=== PATIENT | female | born 1995 | race Caucasian/White ===

== ENCOUNTER 2019-04-07 16:44 | Observation (INO) | payer OTHER, BC ==
[2019-04-07] MEDS ORDERED: NA CHLORIDE 0.9% 2,000 ML ONE (18:23)
[2019-04-07 18:30] LABS: Absolute Lymphocytes (CBC) 1.7 K/uL (0.7-4.9); Basophils % 0.3 % (0-1.3); Hematocrit 25.4 % (36.0-45.0); Lymphocytes % 19.8 % (15.3-44.8); MPV 10.8 fL (7.6-11.3); RBC Red Blood Cell Count 2.96 M/uL (3.86-4.86)
[2019-04-07 18:49] LABS: BUN Blood Urea Nitrogen 7 mg/dL (7-18); Bicarbonate 25 mmol/L (21-32); Glucose Level 93 mg/dL (74-106); HCG, Quantitative 136 mIU/mL (1-3); Potassium 3.6 mmol/L (3.5-5.1); Sodium Level 140 mmol/L (136-145)
[2019-04-07] MEDS ORDERED: METHYLERGONOVINE 0.2MG/ML AMP IM ONE (19:12)
--- NOTE | 2019-04-07 19:42 | ER ---
Nurse's Notes [facility] Name: Karen Lloyd Age: 23 yrs Sex: Female : 1995 Arrival Date: 04/07/2019 Time: 16:48 Bed 30 Private MD: Diagnosis: Spontaneous ;Pelvic and perineal pain;Anemia, unspecified Presentation: 04/07 16:58 Presenting complaint: Patient states: "I had a miscarriage on Sunday, I have been aj1 bleeding since Sunday. I saw Dr. Horner this morning, he removed a lot of the placenta, he checked my blood and my hemoglobin was really low. He called and told me to come to the ER" Reports that her hemoglobin was at a 9 today. Transition of care: patient was not received from another setting of care. Onset of symptoms was April 07, 2019. Risk Assessment: Do you want to hurt yourself or someone else? Patient reports no desire to harm self or others. Initial Sepsis Screen: Does the patient meet any 2 criteria? HR > 90 bpm. No. Patient's initial sepsis screen is negative. Does the patient have a suspected source of infection? No. Patient's initial sepsis screen is negative. Care prior to arrival: None. 16:58 Method Of Arrival: Ambulatory aj1 16:58 Acuity: INMA 3 aj1 Triage Assessment: 17:01 General: Appears in no apparent distress. uncomfortable, Behavior is calm, cooperative, aj1 appropriate for age. Pain: Pain currently is 9 out of 10 on a pain scale. Neuro: Level of Consciousness is awake, alert, obeys commands. Cardiovascular: Patient's skin is warm and dry. 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 - Social history:: Smoking status: Patient/guardian denies using tobacco. - Ebola Screening: : Patient denies travel to an Ebola-affected area in the 21 days before illness onset. - Family history:: not pertinent. Screenin:30 Abuse screen: Denies threats or abuse. Nutritional screening: No deficits noted. tr5 Tuberculosis screening: No symptoms or risk factors identified. Fall Risk None identified. Assessment: 17:30 General: Appears in no apparent distress. Behavior is calm, cooperative. Pain: Denies tr5 pain. Neuro: Level of Consciousness is awake, alert, obeys commands, Oriented to person, place, time, Clerk are equal bilaterally. Cardiovascular: Heart tones present Capillary refill < 3 seconds. Respiratory: Airway is patent Respiratory effort is even, unlabored, Respiratory pattern is regular, symmetrical. GI: No signs and/or symptoms were reported involving the gastrointestinal system. : Reports vaginal bleeding that is bright red. EENT: No signs and/or symptoms were reported regarding the EENT system. Derm: No signs and/or symptoms reported regarding the dermatologic system. Musculoskeletal: No signs and/or symptoms reported regarding the musculoskeletal system. 19:30 General: Appears in no apparent distress. uncomfortable, Behavior is calm, cooperative, aj1 appropriate for age. Pain: Complains of pain in left lower quadrant and right lower quadrant and suprapubic area Pain does not radiate. Pain currently is 8 out of 10 on a pain scale. Neuro: Level of Consciousness is awake, alert, obeys commands, Oriented to person, place, time, situation. Cardiovascular: Patient's skin is warm and dry. Respiratory: Airway is patent Respiratory effort is even, unlabored, Respiratory pattern is regular, symmetrical. GI: Abdomen is non-distended. : Reports vaginal bleeding that is bright red, with clots. EENT: No signs and/or symptoms were reported regarding the EENT system. Derm: Skin is pale. Musculoskeletal: No signs and/or symptoms reported regarding the musculoskeletal system. Circulation, motion, and sensation intact. 20:30 Reassessment: Patient appears in no apparent distress at this time. Patient and/or aj1 family updated on plan of care and expected duration. Pain level reassessed. Patient is alert, oriented x 3, equal unlabored respirations, skin warm/dry/pink. Patient states that she still has some pain but it has reduced to a tolerable level since administration of morphine. 21:15 Reassessment: Patient appears in no apparent distress at this time. No changes from aj1 previously documented assessment. Patient and/or family updated on plan of care and expected duration. Pain level reassessed. Patient is alert, oriented x 3, equal unlabored respirations, skin warm/dry/pink. Vital Signs: 17:01 BP 118 / 76; Pulse 101; Resp 20; Temp 99.7; Pulse Ox 100% on R/A; Weight 52.16 kg (R); aj1 Height 5 ft. 2 in. (157.48 cm) (R); Pain 9/10; 18:22 BP 108 / 66; Pulse 96; Resp 16; Pulse Ox 100% on R/A; 5 20:02 BP 117 / 69; Pulse 86; Resp 18; Pulse Ox 100% on R/A; aj1 21:05 BP 121 / 73; Pulse 86; Resp 18; Pulse Ox 100% on R/A; aj1 17:01 Body Mass Index 21.03 (52.16 kg, 157.48 cm) [facility] ED Course: 16:48 Patient arrived in ED. mr 17:01 Triage completed. aj1 17:01 Arm band placed on Patient placed in an exam room. aj1 17:06 Will Jose, ANDREI is Primary Nurse. tr5 17:12 Robert Christopher MD is Attending Physician. [facility] 17:30 Bed in low position. Call light in reach. Side rails up X 1. tr5 18:21 Initial lab(s) drawn, by nc, sent to lab. T\\T\\S collected, blood band applied to patient. 5 Inserted saline lock: 22 gauge in right antecubital area, using aseptic technique. 18:22 Quantitative Hcg Sent. 5 18:22 Type And Screen Sent. 5 18:22 Basic Metabolic Panel Sent. 5 18:22 CBC with Diff Sent. 5 18:53 Transvaginal Ob: recent miscarriage In Process Unspecified. EDWV 19:15 Report received from ANDREI Solis. aj1 19:40 Jimmy Horner MD is Hospitalizing Provider. [facility] 20:02 No provider procedures requiring assistance completed. aj1 21:15 Report given to ANDREI [place] [facility]. aj1 21:33 Patient admitted, IV remains in place. aj1 Administered Medications: 18:51 Drug: NS 0.9% 1000 ml Route: IV; Rate: 1 bolus; Site: right antecubital; tr5 19:15 Drug: METHERgine 0.2 mg Route: IM; Site: left deltoid; tr5 20:00 Follow up: Response: No adverse reaction aj 19:28 Not Given (Duplicate Order): NS 0.9% 1000 ml IV at 125 ml/hr continuous juan 19:28 CANCELLED (Duplicate Order): Pitocin 20 units IV at calculated rate once; please add to juan LR AT 125 CC/HR 20:00 Drug: Rocephin 1 grams Route: IV; Rate: per protocol; Site: right antecubital; aj1 20:02 Follow up: IV Status: Completed infusion; IV Intake: 10ml aj 20:01 Drug: morphine 2 mg Route: IVP; Site: right antecubital; aj1 20:30 Follow up: Response: No adverse reaction; Pain is decreased; RASS: Alert and Calm (0) aj 20: Drug: Zofran 4 mg Route: IVP; Site: right antecubital; aj1 20:30 Follow up: Response: No adverse reaction aj 20: Drug: Lactated Ringers Solution 1000 ml Route: IV; Rate: 150 ml/hr; Site: right aj1 antecubital; 21:36 Follow up: IV Status: Infusion continued upon admission; IV Intake: 165ml aj1 20:01 Drug: Pitocin 20 units Route: IV; Rate: calculated rate; Site: right antecubital; aj1 21:36 Follow up: IV Status: Infusion continued upon admission aj1 Intake: 20:02 IV: 10ml; Total: 10ml. aj1 21:36 IV: 165ml; Total: 175ml. aj1 Outcome: 19:42 Decision to Hospitalize by Provider. [facility] 21:34 Admitted to L \\T\\ D, accompanied by tech, via wheelchair, with chart. aj1 21:34 Condition: good 21:34 Discharge instructions given to patient, family, Instructed on the need for admit, Demonstrated understanding of instructions. 21:37 Patient left the ED. aj1 Signatures: Dispatcher [employer] Margy Shen RN RN aj1 Robert Christopher MD MD cha Rivera, Sonal Egan, [place] Will Harvey RN RN tr5 Corrections: (The following items were deleted from the chart) 18:50 18:22 ABO/RH TYPING+BB.LAB.BRZ drawn and sent. mh5 EDMS
--- NOTE | 2019-04-07 19:43 | EDPHYS ---
Physician Documentation [facility] Name: Karen Lloyd Age: 23 yrs Sex: Female : 1995 Arrival Date: 04/07/2019 Time: 16:48 Bed 30 Private MD: ED Physician Robert Christopher HPI: 04/07 17:53 This 23 yrs old Female presents to ER via Ambulatory with complaints of juan Abnormal Lab Results. 17:53 The patient presents with pelvic pain, that is located in/on the suprapubic area, right juan lower quadrant and left lower quadrant, vaginal bleeding that is light, moderate. Onset: The symptoms/episode began/occurred 3 day(s) ago. Modifying factors: The symptoms are alleviated by nothing, the symptoms are aggravated by nothing. Associated signs and symptoms: The patient has no apparent associated signs or symptoms. Severity of symptoms: At their worst the symptoms were moderate, in the emergency department the symptoms have resolved. The patient is sexually active, reportedly has a single partner. 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 - Social history:: Smoking status: Patient/guardian denies using tobacco. - Ebola Screening: : Patient denies travel to an Ebola-affected area in the 21 days before illness onset. - Family history:: not pertinent. ROS: 17:53 Constitutional: Negative for fever, chills, and weight loss, Eyes: Negative for injury, juan pain, redness, and discharge, ENT: Negative for injury, pain, and discharge, Neck: Negative for injury, pain, and swelling, Respiratory: Negative for shortness of breath, cough, wheezing, and pleuritic chest pain, Abdomen/GI: Negative for abdominal pain, nausea, vomiting, diarrhea, and constipation, Back: Negative for injury and pain, : Negative for injury, bleeding, discharge, and swelling, Skin: Negative for injury, rash, and discoloration, Neuro: Negative for headache, weakness, numbness, tingling, and seizure. 17:53 Cardiovascular: Positive for palpitations. 17:53 Abdomen/GI: Positive for abdominal pain, of the suprapubic area, right lower quadrant and left lower quadrant. 17:53 MS/extremity: Positive for Exam: 17:53 Constitutional: This is a well developed, well nourished patient who is awake, alert, juan and in no acute distress. Head/Face: Normocephalic, atraumatic. ENT: Nares patent. No nasal discharge, no septal abnormalities noted. Tympanic membranes are normal and external auditory canals are clear. Oropharynx with no redness, swelling, or masses, exudates, or evidence of obstruction, uvula midline. Mucous membranes moist. Neck: Trachea midline, no thyromegaly or masses palpated, and no cervical lymphadenopathy. Supple, full range of motion without nuchal rigidity, or vertebral point tenderness. No Meningismus. Chest/axilla: Normal chest wall appearance and motion. Nontender with no deformity. No lesions are appreciated. Cardiovascular: Regular rate and rhythm with a normal S1 and S2. No gallops, murmurs, or rubs. Normal PMI, no JVD. No pulse deficits. Respiratory: Lungs have equal breath sounds bilaterally, clear to auscultation and percussion. No rales, rhonchi or wheezes noted. No increased work of breathing, no retractions or nasal flaring. Back: No spinal tenderness. No costovertebral tenderness. Full range of motion. MS/ Extremity: Pulses equal, no cyanosis. Neurovascular intact. Full, normal range of motion. Neuro: Awake and alert, GCS 15, oriented to person, place, time, and situation. Cranial nerves II-XII grossly intact. Motor strength 5/5 in all extremities. Sensory grossly intact. Cerebellar exam normal. Normal gait. Psych: Awake, alert, with orientation to person, place and time. Behavior, mood, and affect are within normal limits. 17:53 Eyes: Conjunctiva: pale. 17:53 Cardiovascular: Rate: tachycardic, Rhythm: regular, Pulses: Pulses are 4+ in bilateral radial, brachial, femoral, popliteal, posterior tibial and and dorsalis pedis arteries.. Heart sounds: normal, Edema: is not appreciated, JVD: is not appreciated. 17:53 Skin: Appearance: Color: pale, Temperature: normal temperature, warm, Moisture: normal moisture, petechiae, not noted, ecchymosis, not noted, flushing, not noted, diaphoresis is not appreciated. Vital Signs: 17:01 BP 118 / 76; Pulse 101; Resp 20; Temp 99.7; Pulse Ox 100% on R/A; Weight 52.16 kg (R); aj1 Height 5 ft. 2 in. (157.48 cm) (R); Pain 9/10; 18:22 BP 108 / 66; Pulse 96; Resp 16; Pulse Ox 100% on R/A; mh5 20:02 BP 117 / 69; Pulse 86; Resp 18; Pulse Ox 100% on R/A; aj1 21:05 BP 121 / 73; Pulse 86; Resp 18; Pulse Ox 100% on R/A; aj1 17:01 Body Mass Index 21.03 (52.16 kg, 157.48 cm) [facility] MDM: 17:13 Patient medically screened. [facility] 17:56 Data reviewed: vital signs, nurses notes, lab test result(s), radiologic studies, juan ultrasound. 04/07 17:52 Order name: Quantitative Hcg; Complete Time: 18:52 [facility] 04/07 17:52 Order name: Basic Metabolic Panel; Complete Time: 18:52 [facility] 04/07 17:52 Order name: CBC with Diff; Complete Time: 18:52 [facility] 04/07 17:52 Order name: Type And Screen; Complete Time: 19:17 [facility] 04/07 17:53 Order name: US Transvaginal Ob: recent miscarriage [facility] 04/07 17:52 Order name: Urine Test (obtain specimen); Complete Time: 18:19 [facility] 04/07 17:52 Order name: IV Saline Lock; Complete Time: 18:19 [facility] 04/07 17:52 Order name: Labs collected and sent; Complete Time: 18:19 [facility] 04/07 17:52 Order name: NPO; Complete Time: 18:19 [facility] 04/07 17:52 Order name: Urine Dipstick-Ancillary (obtain specimen); Complete Time: 19:21 [facility] 04/07 17:57 Order name: EKG; Complete Time: 17:58 [facility] 04/07 17:57 Order name: EKG - Nurse/Tech; Complete Time: 19:06 [facility] Administered Medications: 18:51 Drug: NS 0.9% 1000 ml Route: IV; Rate: 1 bolus; Site: right antecubital; tr5 19:15 Drug: METHERgine 0.2 mg Route: IM; Site: left deltoid; tr5 20:00 Follow up: Response: No adverse reaction 19:28 Not Given (Duplicate Order): NS 0.9% 1000 ml IV at 125 ml/hr continuous juan 19:28 CANCELLED (Duplicate Order): Pitocin 20 units IV at calculated rate once; please add to juan LR AT 125 CC/HR 20:00 Drug: Rocephin 1 grams Route: IV; Rate: per protocol; Site: right antecubital; aj1 20:02 Follow up: IV Status: Completed infusion; IV Intake: 10ml aj 20: Drug: morphine 2 mg Route: IVP; Site: right antecubital; aj1 20:30 Follow up: Response: No adverse reaction; Pain is decreased; RASS: Alert and Calm (0) aj 20: Drug: Zofran 4 mg Route: IVP; Site: right antecubital; aj1 20:30 Follow up: Response: No adverse reaction aj 20: Drug: Lactated Ringers Solution 1000 ml Route: IV; Rate: 150 ml/hr; Site: right aj1 antecubital; 21:36 Follow up: IV Status: Infusion continued upon admission; IV Intake: 165ml aj 20: Drug: Pitocin 20 units Route: IV; Rate: calculated rate; Site: right antecubital; aj1 21:36 Follow up: IV Status: Infusion continued upon admission aj1 Disposition: 04/07/19 19:42 Hospitalization ordered by Jimmy Horner for Observation. Preliminary diagnosis are Spontaneous , Pelvic and perineal pain, Anemia, unspecified. - Bed [facility]. - Status is Observation. aj1 - Condition is Fair. - Problem is new. - Symptoms have improved. UTI on Admission? No Signatures: Dispatcher [employer] Margy Shen RN RN aj1 Robert Christopher MD MD cha Garcia, Cindy, RN RN cg Rodriguez, Tommie, RN RN tr5 Corrections: (The following items were deleted from the chart) 18:50 17:53 ABO/RH TYPING+BB.LAB.BRZ ordered. EDMS EDMS 19:28 19:27 Pitocin 20 units IV at calculated rate once; please add to LR AT 125 CC/HR juan ordered. juan 20:51 19:42 Hospitalization Ordered by Jimmy Horner MD for Observation. Preliminary cg diagnosis is Spontaneous ; Pelvic and perineal pain; Anemia, unspecified. Bed requested for Telemetry/MedSurg (observation). Status is Observation. Condition is Fair. Problem is new. Symptoms have improved. UTI on Admission? No. juan 20:54 20:51 04/07/2019 19:42 Hospitalization Ordered by Jimmy Horner MD for Observation. cg Preliminary diagnosis is Spontaneous ; Pelvic and perineal pain; Anemia, unspecified. Bed requested for [facility]. Status is Observation. Condition is Fair. Problem is new. Symptoms have improved. UTI on Admission? No. cg 21:37 20:54 04/07/2019 19:42 Hospitalization Ordered by Jimmy Horner MD for Observation. aj1 Preliminary diagnosis is Spontaneous ; Pelvic and perineal pain; Anemia, unspecified. Bed requested for [facility]. Status is Observation. Condition is Fair. Problem is new. Symptoms have improved. UTI on Admission? No. cg
[2019-04-07] MEDS ORDERED: OXYTOCIN 10 UNIT/ML ML IV ONE (19:45)
[2019-04-07] MEDS ORDERED: ONDANSETRON 4 MG/2 ML VIAL ONE (19:45)
[2019-04-07] MEDS ORDERED: MORPHINE 2 MG/ML SYR ONE (19:45)
[2019-04-07] MEDS ORDERED: CEFTRIAXONE/SWI 1gm 1 GM/10 ML SYR ONE (19:45)
[2019-04-07] MEDS ORDERED: Ringers Lactate 1,000 ML IV ONE (19:45)
--- NOTE | 2019-04-07 20:04 | RAD REPORT ---
EXAM DESCRIPTION: US - Transvaginal OB - 04/07/2019 6:50 pm CLINICAL HISTORY: ABD CRAMPING, , miscarriage with removal of placental tissue COMPARISON: None. TECHNIQUE: Endovaginal sonography performed. FINDINGS: Retroflexed uterus is present. No myometrial mass. Endometrium is 7 mm in thickness. No hematoma or m ass within the endometrial cavity. Small amount of blood products still present in the endometrial ca vity. No finding suspicious for retained placental tissue. Normal right ovary with normal blood flow within the stroma. Left ovary is obscured by bowel. No blood or fluid in the cul de sac. IMPRESSION: Minimal amount of hemorrhagic material within the endometrial cavity. No retained or placental tissue identifiable.
[2019-04-07] MEDS ORDERED: Ringers Lactate 1,000 ML IV SCH (20:36)
[2019-04-07] MEDS ORDERED: MORPHINE 4 MG/ML SYR IV PRN (20:36)
[2019-04-07] MEDS ORDERED: ACETAMINOPHEN 500 MG TAB PO PRN (20:36)
[2019-04-07] MEDS ORDERED: METHYLERGONOVINE 0.2 MG TAB PO PRN (20:36)
[2019-04-07] MEDS ORDERED: ONDANSETRON 4 MG/2 ML VIAL IV PRN (20:36)
[2019-04-07] MEDS ORDERED: OXYTOCIN/LR 20 UNIT/1,000 ML BAG IV SCH (20:36)
[2019-04-07] MEDS ORDERED: KETOROLAC 30 MG/ML INJ IV ONE (21:51)
[2019-04-07 22:23] VITALS: BMI 21.0
[2019-04-07 22:59] VITALS: O2SAT 100
[2019-04-07] MEDS: METHYLERGONOVINE 0.2 MG TAB PO SCH (23:07)
[2019-04-08] MEDS: METHYLERGONOVINE 0.2 MG TAB PO SCH ×2 (03:03→07:13)
[2019-04-08] MEDS ORDERED: IBUPROFEN 400 MG TAB PO SCH (04:00)
[2019-04-08 04:55] LABS: Absolute Lymphocytes (CBC) 1.5 K/uL (0.7-4.9); Basophils % 0.6 % (0-1.3); Hematocrit 22.3 % (36.0-45.0); Lymphocytes % 27.7 % (15.3-44.8); MPV 10.3 fL (7.6-11.3); RBC Red Blood Cell Count 2.56 M/uL (3.86-4.86)
[2019-04-08 05:15] LABS: Blood Morphology Comment NOTED (NOT SEEN); Platelet Estimate DECR
[2019-04-08 05:16] LABS: Ovalocytes 1+; Urine White Blood Cell Casts OK
[2019-04-08 07:28] VITALS: BP 91/51; TEMP 98.2
--- NOTE | 2019-04-08 11:16 | PREOPHP ---
Date of Admission: 04/07/2019 History Of Present Illness: 23-year-old with first trimester incomplete miscarriage was seen in my o ffice and noted to have decreasing quantitative levels. Ultrasound demonstrated no cardiac activity, chose to wait for spontaneous resolution, started bleeding heavily for several days, came to my offi ce. Exam showed POC in the os. This was removed and a light curettage was performed. Patient was v han cooperative. Patient was given a prescription for Cytotec to be taken every 4 hours for 4 doses and doxycycline 100 mg to be taken twice a day for 2 days. However, patient did not for fill the pre scription quickly and later that day started having significant bleeding again. She was told go the emergency room in [place], but instead waited and then came here. Never got the Cytotec. In our em ergency room, was evaluated. Ultrasound demonstrated empty uterus. Bleeding was moderate. At that point, she was given Methergine and bleeding essentially subsided. She was having cramping. She was admitted for overnight observation. This morning, she is feeling much better. The cramping is gone . She was given 1 dose of Toradol 30 mg IV. Her bleeding is basically stopped. Her hemoglobin this morning is 7.8, but patient is quite stable. We will ambulate her and if over the next several hour s she has no symptoms, we will dismiss her. I have written prescriptions for Cytotec to be taken nnamdi ry 4 hours for 4 doses, doxycycline twice a day for 2 days, and Sprintec to begin this Sunday to prev ent any problems with the next 2 to 3 periods. She is Rh positive and will not need RhoGAM. Physical Examination: General: The physical exam is basically stable, other than the fact that patient is pale. HEENT: Clear. Pupils equal, round, and reactive to light and accommodation. Heart and Lungs: Clear on previous exams. Breasts: Not examined. Abdomen: Soft. Extremities: Clear without edema, cyanosis, or clubbing. Pelvic: Deferred as patient had ultrasound and examined in my office previously. Diagnosis: First trimester incomplete . Now, uterus completely evacuated. RIKY/DEMI Voice ID: [id number]
--- NOTE | 2019-04-08 12:21 | EKG ---
Test Date: 2019-04-07 Test Time: 19:02:54 Tissue Recovery Technician: TR MEASUREMENT RESULTS: Intervals: Rate: 84 DC: 154 QRSD: 82 QT: 352 QTc: 415 [place]: P: 42 DC: 154 QRS: 72 T: 42 INTERPRETIVE STATEMENTS: Normal sinus rhythm Normal ECG No previous ECG available for comparison Electronically Signed On 04-08-19 12:19:28 TABLE TOP TILE SETTER by Star Mcgrath
--- NOTE | 2019-04-08 15:28 | DS ---
Date of Discharge: 04/08/2019 Patient had incomplete spontaneous . The products of conception were removed in my office an d light curettage was performed. She was given prescription for Cytotec, which she did not fill. Kisha hennessy that day, she was informed to go the emergency room in [place] as that was the closest facility, but she chose not to, instead came here. She was evaluated in the emergency room where ultrasound d emonstrated nothing within the uterus. Given Methergine, which basically controlled her bleeding, bu t caused cramping. She was admitted overnight. Has done quite well since then. Minimal bleeding. No pain. She will be ambulated and if everything is okay, dismissed with Cytotec, doxycycline, and S printec to prevent any problems with her next few periods. She is Rh positive and will not need RhoG AM. RIKY/DEMI Voice ID: [id number] Report ID: [id number]
== END 2019-04-08 10:20 | disposition home or self-care (01) ==
LOC: ER 16:44 → ERHOLD 20:29 → 2ND-WC 21:13
PROVIDERS: ADMIT Specialist; ATTEND Specialist
DX: O03.4 Incomplete spontaneous abortion without complication (principal)
CPT/HCPCS: 96365; 93005; 85025 ×2; 80048; 36415; 86900; 86850; 86901; 84702; 76817; 96375; 96372; 99285; 96366; J2210; J2590 ×2; J2270; J0696; J7120; J7030; J2405; G0378 ×3

== ENCOUNTER → 2023-07-03 | Emergency (ER) | payer SELFPAY ==
--- OUTSIDE RECORDS SUMMARY | 2023-07-03 08:28 | XMS REPORT | Continuity of Care Document ---
Author Name Unknown Address [address] [facility] [address] [id number] [facility] Address [address] [facility] [address] [place] [address] Care Team Providers Care Vp Clinical Name Role Phone GC_[email or web address]_Parish_B Attending Clinician Unavail able Rutledge_L Attending Clinician Unavailable GC_SWHASLWC_Parish_B Admitting Clinician Unavail able Rutledge_L Admitting Clinician Unavailable Payers Payer Name Policy Type Policy Number Effective Date Expirati on Date Source [facility]: ([place] [id number] 2022 00:00:00 2023 00:00:00 [facility] [id number] Encounters Start Date/Time End Date/Time Encounter Type Admission Type Attending Clinicians Care Facility Care Department Encounter ID Source 2023-06-13 00:00:00 2023-06-13 00:00:00 Outpatient GC_SWHASLWC _Parish_B PRIV PRIV [id number] [facility] 2023-06-11 00:00:00 2023-06-11 00:00:00 Outpatient GC_SWHASLWC _Parish_B PRIV PRIV [id number] [facility] 2023-06-08 00:00:00 2023-06-08 00:00:00 Outpatient GC_SWHASLWC _Parish_B PRIV PRIV [id number] [facility] 2023-06-05 00:00:00 2023-06-05 00:00:00 Outpatient GC_SWHASLWC _Parish_B PRIV PRIV [id number] [facility] 2022-02-24 15:46:00 2022-02-24 15:46:00 Outpatient DarvinIsabel díaz [facility] [id number] [address] [facility] 2020-04-21 02:42:00 2020-04-21 02:42:00 Outpatient Cara LATHAM [facility] [id number] [facility]
[2023-07-03 09:38] LABS: Hematocrit 40.5 % (36.0-45.0); Lymphocytes % 28.7 % (15.3-44.8); MCV 86.8 fL (80-100); Platelets 180 thou/uL (152-406); RBC Red Blood Cell Count 4.67 M/uL (3.86-4.86)
[2023-07-03 09:56] LABS: Potassium 3.7 mEq/L (3.5-5.1)
--- NOTE | 2023-07-03 10:14 | RAD REPORT ---
EXAM DESCRIPTION: US - Transvaginal OB - 07/03/2023 10:03 am CLINICAL HISTORY: bleeding COMPARISON: Transvaginal OB dated 04/07/2019 TECHNIQUE: Sonographic grayscale and color flow images of the pelvis, obtained through transvaginal approach. FINDINGS: No intrauterine is identified. Endometrium is homogeneous, measuring 9 mm in thi ckness, please correlate with menstrual phase. No focal myometrial abnormality. Uterus is retroverted. Right ovary measures 2.8 x 1.6 x 2.3 cm. Left ovary measures 1.3 x 1.6 x 1.2 cm. No suspicious adnexa l masses. Mild free fluid with debris near the fundus and along the right more than left adnexal region. IMPRESSION: 1. No intrauterine is identified. No findings to suggest an ectopic . Please correlate with serial beta HCG trend. 2. Mild free fluid with debris, nonspecific, and could relate to recent cyst/follicle rupture.
--- NOTE | 2023-07-03 11:11 | ER ---
Nurse's Notes [facility] Name: Karen Olivier Age: 28 yrs Sex: Female : 1995 Arrival Date: 07/03/2023 Time: 08:25 Bed 11 Private MD: Diagnosis: Missed Presentation: 07/03 08:45 Chief complaint: Patient states: Pt reports confirmed via blood and urine ap3 tests, approximately 6 weeks by date. States bilateral lower abdominal cramping and bleeding that began yesterday, worsened at 0100. Coronavirus screen: Vaccine status: Patient reports being unvaccinated. Client denies travel out of the [place] in the last 14 days. Ebola Screen: Patient negative for fever greater than or equal to 101.5 degrees Fahrenheit, and additional compatible Ebola Virus Disease symptoms Patient denies exposure to infectious person. Patient denies travel to an Ebola-affected area in the 21 days before illness onset. Initial Sepsis Screen: Does the patient meet any 2 criteria? HR > 90 bpm. No. Patient's initial sepsis screen is negative. Does the patient have a suspected source of infection? No. Patient's initial sepsis screen is negative. Risk Assessment: Do you want to hurt yourself or someone else? Patient reports no desire to harm self or others. Onset of symptoms was July 03, 2023 at 01:00. 08:45 Method Of Arrival: Ambulatory ap3 08:45 Acuity: NIMA 2 ap3 Triage Assessment: 08:48 General: Appears in no apparent distress. uncomfortable, Behavior is calm, cooperative. ap3 Pain: Complains of pain in right femoral area, left femoral area, suprapubic area, right inguinal area and left inguinal area Pain does not radiate. Pain currently is 7 out of 10 on a pain scale. Quality of pain is described as crampy, sharp. : Reports cramping, discharge, pain vaginal bleeding that is Denies burning with urination. 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 Last tetanus immunization: up to date. - Social history:: Smoking status: Patient denies any tobacco usage or history of. - Family history:: not pertinent. Screenin:01 [facility] ED Fall Risk Assessment (Adult) Score/Fall Risk Level 0 - 2 = Low Risk nj1 Oriented to surroundings, Maintained a safe environment, Hourly rounding (assess needs \T\ fall precautionary measures) done. Abuse screen: Denies threats or abuse. Denies injuries from another. Nutritional screening: No deficits noted. Tuberculosis screening: No symptoms or risk factors identified. Assessment: 09:01 Reassessment: See triage assessment. nj1 09:55 Reassessment: Pt in ultrasound, unable to recollect at this time. kb3 10:08 Reassessment: Patient appears in no apparent distress at this time. No changes from [facility] previously documented assessment. Patient and/or family updated on plan of care and expected duration. Pain level reassessed. Patient is alert, oriented x 3, equal unlabored respirations, skin warm/dry/pink. 11:18 Reassessment: Patient appears in no apparent distress at this time. Patient is alert, nj1 oriented x 3, equal unlabored respirations, skin warm/dry/pink. Vital Signs: 08:45 BP 128 / 82; Pulse 98; Resp 20; Temp 98.2; Pulse Ox 100% ; Weight 54.43 kg; Height 5 ap3 ft. 2 in. ; Pain 7/10; 10:10 BP 121 / 76; Pulse 82; Resp 16; Pulse Ox 100% on R/A; Pain 3/10; nj1 11:18 BP 108 / 68; Pulse 87; Resp 16; Pulse Ox 100% ; nj1 08:45 Body Mass Index 21.95 (54.43 kg, 157.48 cm) ap3 08:45 Pain Scale: Adult ap3 10:10 Pain Scale: Adult nj1 ED Course: 08:28 Patient arrived in ED. im 08:48 Triage completed. ap3 08:48 Arm band placed on. ap3 08:51 Stuart Verdin MD is Attending Physician. rt 09:00 Zneobia Vance RN is Primary Nurse. nj1 09:01 Patient has correct armband on for positive identification. Bed in low position. Call nj1 light in reach. Provided Education on: call light, fall precautions. 09:25 Inserted saline lock: 22 gauge in left antecubital area, using aseptic technique. Blood kb3 collected. 09:59 Transvaginal OB In Process Unspecified. EDMS 11:19 No provider procedures requiring assistance completed. IV discontinued, intact, nj1 bleeding controlled. Administered Medications: No medications were administered Medication: 11:19 VIS not applicable for this client. nj1 Outcome: 11:10 Discharge ordered by . rt 11:19 Discharged to home ambulatory, nj1 11:19 Condition: stable 11:19 Discharge instructions given to patient, Instructed on discharge instructions, follow up and referral plans. Demonstrated understanding of instructions, follow-up care, 11:19 Patient left the ED. nj1 Signatures: Dispatcher [employer] EDMS Thea Shea RN RN ap3 Maite Smith RN RN kb3 Stuart Verdin MD MD rt Zenobia Vance RN RN nj1 Mattie Connor Corrections: (The following items were deleted from the chart) 08:48 08:48 PMHx: None; ap3 ap3
--- NOTE | 2023-07-03 11:11 | EDPHYS ---
Physician Documentation [facility] Name: Karen Olivier Age: 28 yrs Sex: Female : 1995 Arrival Date: 07/03/2023 Time: 08:25 Bed 11 Private MD: ED Physician Stuart Verdin HPI: 07/03 11:49 This 28 yrs old Female presents to ER via Ambulatory with complaints of Vaginal rt Bleeding, + Preg <12wks, Abdominal Cramping. 11:49 Patient's LMP was about 6 weeks ago, she is a G3, P1. The patient states that she has rt had a positive test at home, reportedly had an hCG of 100 and her doctor's office about a week ago. States that she developed an abdominal cramping, vaginal bleeding, less than a period starting overnight. Denies other acute complaints at this time, symptoms are moderate in severity, no other aggravating or alleviating factors.. 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 Last tetanus immunization: up to date. - Social history:: Smoking status: Patient denies any tobacco usage or history of. - Family history:: not pertinent. ROS: 11:49 Constitutional: Negative for fever, chills, and weight loss, Cardiovascular: Negative rt for chest pain, palpitations, and edema, Respiratory: Negative for shortness of breath, cough, wheezing, and pleuritic chest pain, MS/Extremity: Negative for injury and deformity, Skin: Negative for injury, rash, and discoloration, Neuro: Negative for headache, weakness, numbness, tingling, and seizure, 11:49 Abdomen/GI: Positive for abdominal pain, Negative for nausea and vomiting, 11:49 : Positive for vaginal bleeding, Negative for difficulty urinating, Exam: 11:49 Constitutional: This is a well developed, well nourished patient who is awake, alert, rt and in no acute distress. Head/Face: Normocephalic, atraumatic. Chest/axilla: Normal chest wall appearance and motion. Nontender with no deformity. No lesions are appreciated. Cardiovascular: Regular rate and rhythm with a normal S1 and S2. No gallops, murmurs, or rubs. Normal PMI, no JVD. No pulse deficits. Respiratory: Lungs have equal breath sounds bilaterally, clear to auscultation and percussion. No rales, rhonchi or wheezes noted. No increased work of breathing, no retractions or nasal flaring. Skin: Warm, dry with normal turgor. Normal color with no rashes, no lesions, and no evidence of cellulitis. MS/ Extremity: Pulses equal, no cyanosis. Neurovascular intact. Full, normal range of motion. Neuro: Awake and alert, GCS 15, oriented to person, place, time, and situation. Cranial nerves II-XII grossly intact. Motor strength 5/5 in all extremities. Sensory grossly intact. Cerebellar exam normal. Normal gait. Psych: Awake, alert, with orientation to person, place and time. Behavior, mood, and affect are within normal limits. 11:49 Abdomen/GI: Minimal suprapubic tenderness, no guarding, rebound, distention, Vital Signs: 08:45 BP 128 / 82; Pulse 98; Resp 20; Temp 98.2; Pulse Ox 100% ; Weight 54.43 kg; Height 5 ap3 ft. 2 in. ; Pain 7/10; 10:10 BP 121 / 76; Pulse 82; Resp 16; Pulse Ox 100% on R/A; Pain 3/10; nj1 11:18 BP 108 / 68; Pulse 87; Resp 16; Pulse Ox 100% ; nj1 08:45 Body Mass Index 21.95 (54.43 kg, 157.48 cm) ap3 08:45 Pain Scale: Adult ap3 10:10 Pain Scale: Adult nj1 MDM: 08:51 Patient medically screened. rt 11:49 Differential diagnosis: Ectopic, miscarriage, implantation bleed. Data reviewed: vital rt signs, nurses notes, lab test result(s), radiologic studies. Counseling: I had a detailed discussion with the patient and/or guardian regarding Instructed on 48-hour hCG follow-up.. 01/30 08:58 Order name: Abo/rh Typing; Complete Time: 10:54 rt 07/03 08:58 Order name: Basic Metabolic Panel; Complete Time: 10:17 rt 07/03 08:58 Order name: CBC with Diff; Complete Time: 10:17 rt 07/03 08:58 Order name: Quantitative Hcg; Complete Time: 10:17 rt 07/03 09:37 Order name: Transvaginal OB; Complete Time: 10:17 EDMS 07/03 08:58 Order name: IV Saline Lock; Complete Time: 09:31 rt 07/03 08:58 Order name: Labs collected and sent; Complete Time: 09:31 rt 07/03 08:58 Order name: NPO; Complete Time: 09:31 rt 07/03 09:36 Order name: Labs - recollect needed: recollect type and screen, re band pt,use lable bd with barcode; Complete Time: 10:07 Administered Medications: No medications were administered Disposition Summary: 07/03/23 11:10 Discharge Ordered Notes: Location: Home rt Problem: new rt Symptoms: are unchanged rt Condition: Stable rt Diagnosis - Missed rt Followup: rt - With: Private Physician - When: 48 Hours - Reason: Repeat Beta-HCG (48 Hours) Discharge Instructions: - Discharge Summary Sheet rt - Miscarriage rt Forms: - Medication Reconciliation Form rt - Thank You Letter rt - Antibiotic Education rt - Prescription Opioid Use rt - Patient Portal Instructions rt - Leadership Thank You Letter rt Signatures: Dispatcher [employer] EDTanya Medeiros Amanda, RN RN ap3 Stuart Verdin MD MD rt Corrections: (The following items were deleted from the chart) 08:48 08:48 PMHx: None; ap3 ap3 09:37 08:58 OB Limited+US.RAD.BRZ ordered. EDMS EDMS
[2023-07-03 16:21] VITALS: BP 108/68; TEMP 98.2; O2SAT 100
== END ==
LOC: ER 08:25
DX: O02.1 Missed abortion (principal)
CPT/HCPCS: 36415; 76817; 80048; 84702; 85025; 86900; 86901

== ENCOUNTER 2024-10-17 08:03 | Emergency (ER) | payer OTHER, SELFPAY ==
[2024-10-17 08:53] LABS: Absolute Eosinophils 0.1 K/uL (0-0.5); Absolute Lymphocytes (CBC) 1.7 K/uL (0.7-4.9); Absolute Monocytes 0.3 K/uL (0.1-1.3); Absolute Neutrophil 4.2 K/uL (1.8-8.0); Basophils % 0.7 % (0-1.3); Eosinophils % 0.9 % (0-4.4); Hematocrit 39.2 % (36.0-45.0); MCH 30.5 pg (27.0-35.0); MCHC 35.7 g/dL (32.0-36.0); MCV 85.3 fL (80-100); MPV 10.2 fL (7.6-11.3); Monocytes % 4.8 % (3.3-12.3); Neutrophils % 66.6 % (41.7-73.7); Platelets 175 thou/uL (152-406); Red Cell Distribution Width 12.4 % (12.1-15.2)
[2024-10-17 09:16] LABS: ALT/SGPT 20 U/L (13-56); AST/SGOT 15 U/L (15-37); Albumin 3.9 g/dL (3.4-5.0); Alkaline Phosphatase 46 U/L (45-117); BUN Blood Urea Nitrogen 11 mg/dL (7-18); Bicarbonate 24 mEq/L (21-32); Bilirubin Total 0.3 mg/dL (0.2-1.0); Globulin 3.9 g/dL (2.3-3.5); Glomerular Filtration Rate 122 ml/min (=/>90); Glucose Level 103 mg/dL (74-106); Protein, Total 7.8 g/dL (6.4-8.2); Sodium Level 139 mEq/L (136-145)
[2024-10-17 09:21] LABS: Bilirubin Direct < 0.2 mg/dL (0-0.2); Bilirubin Indirect, Calculated 0.1 mg/dL (0.2-0.8); HCG, Quantitative < 1 mIU/mL (1-3)
--- NOTE | 2024-10-17 09:41 | RAD REPORT ---
EXAMINATION: US Transvaginal Study Probe CLINICAL INDICATION: Female 29 years old.[facility] MAIN unk bleeding Bed Name: 15 TECHNIQUE: Real-time ultrasonography of the pelvis was performed transvaginally. Color and spectral D oppler evaluation of the ovaries was performed. COMPARISON: No prior exam. FINDINGS: UTERUS AND CERVIX: The uterus measures 7.4 cm in length. The uterine myometrium is normal. No masses seen The endometrium shows thickening and heterogeneity with multiple cystic spaces near the fundus, overall endometrial stripe measures 2.7 cm in thickness. No significant internal vascularity. . RIGHT OVARY: Normal The right ovary measures 2.8 x 3.1 x 2.7 cm. Normal color and spectral Doppler evaluation of the right ovary.. LEFT OVARY: Normal The left ovary measures 2.5 x 1.3 x 1.2 cm. Normal color and spectral Doppler evaluation of the left ovary.. FREE FLUID: No free fluid. IMPRESSION: Thickened endometrial stripe near the fundus with multiple cystic spaces, but no significant internal vascularity. Findings may relate to reactive changes or cystic hypertrophy. Retained products of conception considered less likely given absence of vascularity, but not entirely excluded.
--- NOTE | 2024-10-17 10:00 | EDPHYS ---
Physician Documentation [facility] Name: Kaern Olivier Age: 29 yrs Sex: Female : 1995 Arrival Date: 10/17/2024 Time: 08:03 Bed 15 Private MD: ED Physician Stuart Verdin HPI: 10/17 14:55 This 29 yrs old Female presents to ER via Ambulatory with complaints of Vaginal rt Bleeding, Abdominal Cramping. 14:55 Patient had a recent miscarriage about 3 months ago. States that the bleeding has rt almost stopped at that point, however, over the past week, she has had worsening bleeding soaking through many pads. States that is somewhat starting to eliza reports a lower abdominal cramping. 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 Denies other acute complaints at this time, symptoms are moderate in severity, no other aggravating alleviating factors.. 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 - Infectious Disease History:: Denies. - Social history:: Smoking status: Patient reports the use of cigarette tobacco products, denies chronic smoking, but will smoke occasionally. - Family history:: not pertinent. ROS: 14:55 Constitutional: Negative for fever, chills, and weight loss, Cardiovascular: Negative rt for chest pain, palpitations, and edema, Respiratory: Negative for shortness of breath, cough, wheezing, and pleuritic chest pain, MS/Extremity: Negative for injury and deformity, Skin: Negative for injury, rash, and discoloration, Neuro: Negative for headache, weakness, numbness, tingling, and seizure, 14:55 : Positive for vaginal bleeding, Negative for burning with urination, Exam: 14:55 Constitutional: This is a well developed, well nourished patient who is awake, alert, rt and in no acute distress. Head/Face: Normocephalic, atraumatic. Chest/axilla: Normal chest wall appearance and motion. Nontender with no deformity. No lesions are appreciated. Cardiovascular: Regular rate and rhythm with a normal S1 and S2. No gallops, murmurs, or rubs. Normal PMI, no JVD. No pulse deficits. Respiratory: Lungs have equal breath sounds bilaterally, clear to auscultation and percussion. No rales, rhonchi or wheezes noted. No increased work of breathing, no retractions or nasal flaring. Abdomen/GI: Soft, non-tender, with normal bowel sounds. No distension or tympany. No guarding or rebound. No evidence of tenderness throughout. Skin: Warm, dry with normal turgor. Normal color with no rashes, no lesions, and no evidence of cellulitis. MS/ Extremity: Pulses equal, no cyanosis. Neurovascular intact. Full, normal range of motion. Neuro: Awake and alert, GCS 15, oriented to person, place, time, and situation. Cranial nerves II-XII grossly intact. Motor strength 5/5 in all extremities. Sensory grossly intact. Cerebellar exam normal. Normal gait. Vital Signs: 08:21 BP 141 / 83; Pulse 83; Resp 16; Temp 98.1(O); Pulse Ox 100% on R/A; Weight 61.23 kg; hb Height 5 ft. 2 in. ; Pain 6/10; 10:13 BP 137 / 81; Pulse 79; Resp 15; Temp 98.1; Pulse Ox 100% ; me1 08:21 Body Mass Index 24.69 (61.23 kg, 157.48 cm) hb 08:21 Pain Scale: Adult hb MDM: 08:21 Medical Screening Exam initiated rt 14:55 Differential diagnosis: Menorrhagia, . Data reviewed: vital signs, nurses rt notes, lab test result(s), radiologic studies. I considered the following discharge prescriptions or medication management in the emergency department Medications were administered in the Emergency Department. See MAR. Counseling: I had a detailed discussion with the patient and/or guardian regarding the historical points, exam findings, and any diagnostic results supporting the discharge/admit diagnosis, lab results, radiology results, the need for outpatient follow up, to return to the emergency department if symptoms worsen or persist or if there are any questions or concerns that arise at home. ED course: Informed patient of findings on ultrasound, we will try to get in with her BOOT LINER MAKER next week for further evaluation. Will start patient on Lysteda.. 10/17 08:29 Order name: Basic Metabolic Panel; Complete Time: 09:45 rt 10/17 08:29 Order name: CBC with Diff; Complete Time: 09:45 rt 10/17 08:29 Order name: Quantitative Hcg; Complete Time: 09:45 rt 10/17 08:29 Order name: LFT's; Complete Time: 09:45 rt 10/17 08:29 Order name: Type And Screen; Complete Time: 09:51 rt 10/17 09:15 Order name: Transvaginal Study Probe; Complete Time: 09:45 EDMS 10/17 08:29 Order name: IV Saline Lock; Complete Time: 08:48 rt 10/17 08:29 Order name: Labs collected and sent; Complete Time: 08:48 rt 10/17 08:29 Order name: NPO; Complete Time: 08:48 rt Administered Medications: No medications were administered Disposition Summary: 10/17/24 09:59 Discharge Ordered Notes: Location: Home rt Problem: new rt Symptoms: have improved rt Condition: Stable rt Diagnosis - Menorrhagia rt Followup: rt - With: Private Physician - When: 5 - 6 days - Reason: Discharge Instructions: - Discharge Summary Sheet rt - Menorrhagia rt Forms: - Medication Reconciliation Form rt - Antibiotic Education rt - Prescription Opioid Use rt - Patient Portal Instructions rt - Leadership Thank You Letter rt Prescriptions: - tranexamic acid 650 mg Oral tablet - take 2 tablet ORAL route 3 times per day for 5 days; 30 tablet; Refills: 0, rt Product Selection Permitted Signatures: Dispatcher [employer] EDMyla Henderson RN RN hb Turkington, Ryan, MD MD rt Corrections: (The following items were deleted from the chart) 09:15 08:30 Pelvis Complete+US.RAD.BRZ ordered. EDMS EDMS
--- NOTE | 2024-10-17 10:00 | ER ---
Nurse's Notes [facility] Name: Karen Olivier Age: 29 yrs Sex: Female : 1995 Arrival Date: 10/17/2024 Time: 08:03 Bed 15 Private MD: Diagnosis: Menorrhagia Presentation: 10/17 08:21 Chief complaint: Heavy vaginal bleeding and abdominal cramping x 3 weeks. Has hb miscarriage end of July, recent blood work normal with negative hcg. . Coronavirus screen: At this time, the client does not indicate any symptoms associated with coronavirus-19. Ebola Screen: No symptoms or risks identified at this time. Initial Sepsis Screen: Does the patient meet any 2 criteria? No. Patient's initial sepsis screen is negative. Does the patient have a suspected source of infection? No. Patient's initial sepsis screen is negative. Risk Assessment: Do you want to hurt yourself or someone else? Patient reports no desire to harm self or others. Onset of symptoms was September 2024. 08:21 Method Of Arrival: Ambulatory hb 08:21 Acuity: NIMA 3 hb Triage Assessment: 08:25 General: Appears in no apparent distress. Behavior is calm, cooperative. Pain: Pain hb currently is 6 out of 10 on a pain scale. Neuro: Level of Consciousness is awake, alert, obeys commands, Oriented to person, place, time, situation. Cardiovascular: Patient's skin is warm and dry. Respiratory: Respiratory effort is even, unlabored, Respiratory pattern is regular, symmetrical. : Reports vaginal bleeding that is with clots, heavy flow. 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 - Infectious Disease History:: Denies. - Social history:: Smoking status: Patient reports the use of cigarette tobacco products, denies chronic smoking, but will smoke occasionally. - Family history:: not pertinent. Screenin:48 [facility] ED Fall Risk Assessment (Adult) History of falling in the last 3 months, jl7 including since admission No falls in past 3 months (0 pts) Confusion or Disorientation No (0 pts) Intoxicated or Sedated No (0 pts) Impaired Gait No (0 pts) Mobility Assist Device Used No (0 pt) Altered Elimination No (0 pt) Score/Fall Risk Level 0 - 2 = Low Risk Oriented to surroundings, Maintained a safe environment. Abuse screen: Denies threats or abuse. Denies injuries from another. Nutritional screening: No deficits noted. Tuberculosis screening: No symptoms or risk factors identified. Assessment: 08:48 General: Appears in no apparent distress. uncomfortable, Behavior is calm, cooperative, jl7 appropriate for age. Pain: Complains of pain in right lower quadrant and left lower quadrant Pain currently is 6 out of 10 on a pain scale. Neuro: Level of Consciousness is awake, alert, obeys commands, Oriented to person, place, time, situation. Cardiovascular: Patient's skin is warm and dry. Respiratory: Airway is patent Respiratory effort is even, unlabored, Respiratory pattern is regular, symmetrical. : Reports cramping, vaginal bleeding that is bright red, moderate flow. Derm: Skin is pink, warm \T\ dry. Vital Signs: 08:21 BP 141 / 83; Pulse 83; Resp 16; Temp 98.1(O); Pulse Ox 100% on R/A; Weight 61.23 kg; hb Height 5 ft. 2 in. ; Pain 6/10; 10:13 BP 137 / 81; Pulse 79; Resp 15; Temp 98.1; Pulse Ox 100% ; me1 08:21 Body Mass Index 24.69 (61.23 kg, 157.48 cm) hb 08:21 Pain Scale: Adult hb ED Course: 08:06 Patient arrived in ED. mr 08:08 Stuart Verdin MD is Attending Physician. rt 08:24 Triage completed. hb 08:25 Dewey Barry, ANDREI is Primary Nurse. jl7 08:25 Arm band placed on. hb 08:48 Patient has correct armband on for positive identification. Provided Education on: use jl7 of call keller. 08:48 Initial lab(s) drawn, by me, sent to lab. Inserted saline lock: 20 gauge in right jl7 antecubital area, using aseptic technique. Blood collected. Flushed with 10 mL NS. 09:15 Transvaginal Study Probe In Process Unspecified. EDMS 10:15 No provider procedures requiring assistance completed. IV discontinued, intact, me1 bleeding controlled, No redness/swelling at site. Pressure dressing applied. Administered Medications: No medications were administered Medication: 08:48 VIS not applicable for this client. jl7 Outcome: 09:59 Discharge ordered by . rt 10:15 Discharged to home ambulatory, me1 10:15 Condition: stable 10:15 Discharge instructions given to patient, Instructed on discharge instructions, follow up and referral plans. medication usage, Demonstrated understanding of instructions, follow-up care, medications, Prescriptions given X 1, 10:16 Patient left the ED. me1 Signatures: Dispatcher [employer] EDMS Sonal Reza, Reg Reg mr WangMyla, RN RN hb Dewey Barry RN RN jl7 Stuart Verdin MD MD rt Sultana Romero RN RN me1
[2024-10-17 10:24] VITALS: TEMP 98.1; O2SAT 100
[2024-10-17 10:25] VITALS: BP 137/81
== END 2024-10-17 10:16 | disposition home or self-care (01) ==
LOC: ER 08:03
DX: N92.0 Excessive and frequent menstruation with regular cycle (principal)
CPT/HCPCS: 36415; 76830; 80048; 80076; 84702; 85025; 86850; 86900; 86901; 99284